=== PATIENT | female | born 1940 | race Hispanic/Latino ===

== ENCOUNTER 2020-06-30 07:17 | Observation (INO) | payer MEDICARE ==
[2020-06-26 09:24] LABS: BASOPHILS # (AUTO) 0.1 (0.0-0.1); BASOPHILS % 0.8 % (0.0-1.0); EOSINOPHILS # (AUTO) 0.3 (0.0-0.4); EOSINOPHILS % 4.2 % (0.0-6.0); HEMATOCRIT 35.4 % (34.2-44.1); LYMPHOCYTES # (AUTO) 1.2 (1.0-3.2); LYMPHOCYTES % 20.3 % (18.0-39.1); MEAN CORPUSCULAR HEMOGLOBIN 27.7 pg (28-32); MEAN CORPUSCULAR HGB CONC 31.1 g/dL (31-35); MEAN CORPUSCULAR VOLUME 89.2 fL (81-99); MONOCYTES # (AUTO) 0.5 (0.2-0.8); MONOCYTES % 7.4 % (4.4-11.3); NEUTROPHILS # (AUTO) 4.1 (2.1-6.9); PLATELET COUNT 252 x10e3/uL (140-360); RED BLOOD COUNT 3.97 x10e6/uL (3.6-5.1); RED CELL DISTRIBUTION WIDTH 12.7 % (11.7-14.4)
[2020-06-26 09:35] LABS: ANION GAP 14.4 mmol/L (8-16); BLOOD UREA NITROGEN 19 mg/dL (7-26); BUN/CREATININE RATIO 24 (6-25); CALCIUM 9.4 mg/dL (8.4-10.2); CARBON DIOXIDE 30 mmol/L (22-29); CHLORIDE 101 mmol/L (98-107); EST GLOMERULAR FILTRATION RATE > 60 ML/MIN (60-); GLUCOSE 102 mg/dL (74-118); POTASSIUM 4.4 mmol/L (3.5-5.1); SODIUM 141 mmol/L (136-145)
[~2020-06-30] VITALS: Ht 165.1 cm; Wt 89.8 kg
[~2020-06-30 07:17] MED LIST: ACETAMINOPHEN500 MG PO; ALENDRONATE SOD70 MG PO; AMLODIPINE BESYL5 MG PO; FERROUS SULFAT325 MG PO; HYDROCHLOROTHIA25 MG PO; NAPROXEN250 MG PO
[2020-06-30] MEDS ORDERED: ROPIVACAINE 246.25 MG, EPINEPHRINE HCL 1:1000 1ML 0.5 MG, CLONIDINE HCL 0.08 MG, KETORO... INJ ONE ×5 (08:00)
[2020-06-30] MEDS ORDERED: DEXAMETHASONE SOD PHOS 10 MG/1 ML VIAL ONE (08:11)
[2020-06-30] MEDS ORDERED: GABAPENTIN 300 MG CAP ONE (08:11)
[2020-06-30] MEDS ORDERED: CEFAZOLIN SOD 1 GM/NS 50ML 100 ML IV ONE (08:11)
[2020-06-30] MEDS ORDERED: CELECOXIB 200 MG CAP ONE (08:11)
[2020-06-30] MEDS ORDERED: VANCOMYCIN HCL 1,000 MG ONE (08:37)
[2020-06-30] MEDS ORDERED: TRANEXAMIC ACID 1,000 MG/10 ML ML ONE (08:37)
[2020-06-30] MEDS ORDERED: SODIUM CHLORIDE 0.9% 500ML 500 ML ONE (08:37)
[2020-06-30] MEDS ORDERED: DOCUSATE SODIUM 100 MG CAP PO PRN (09:45)
[2020-06-30] MEDS ORDERED: ONDANSETRON HCL INJ 2MG/ML 2ML 2 MG/ML VIAL IV PRN (09:45)
[2020-06-30] MEDS ORDERED: HYDROCODONE/APAP 5MG-325MG TAB PO PRN (09:45)
[2020-06-30] MEDS ORDERED: KETOROLAC TROMETHAMINE 30 MG/ML VIAL IV PRN (09:45)
[2020-06-30] MEDS ORDERED: DIPHENHYDRAMINE HCL INJ 50 MG/ML VIAL IV PRN (09:45)
[2020-06-30] MEDS ORDERED: ACETAMINOPHEN 650 MG SUPP PR PRN (09:45)
[2020-06-30 11:11] VITALS: BP 158/76
[2020-06-30 11:12] VITALS: BP 158/76
[2020-06-30 11:17] VITALS: BP 158/76
[2020-06-30] MEDS: SODIUM CHLORIDE 0.9% 1000ML 1,000 ML IV SCH ×2 (12:00→22:19)
[2020-06-30] MEDS ORDERED: ACETAMINOPHEN 1000 MG/100 ML IV PRN (12:00)
[2020-06-30] MEDS ORDERED: PROPOFOL IV EMULSION 10 MG/ML 20 ML VIAL ONE (12:27)
[2020-06-30] MEDS ORDERED: SEVOFLURANE INHAL SOLN 250 ML PEN BTL ONE (12:27)
[2020-06-30] MEDS ORDERED: ONDANSETRON HCL INJ 2MG/ML 2ML 2 MG/ML VIAL ONE (12:27)
[2020-06-30] MEDS ORDERED: ROPIVACAINE 0.5% 5 MG/ML 30 ML SDV ONE (12:56)
[2020-06-30] MEDS ORDERED: LIDOCAINE 2%/ EPINEPHRINE 20ML MDV ONE (12:56)
[2020-06-30] MEDS ORDERED: MORPHINE SULFATE INJ 10 MG/ML ONE (12:59)
[2020-06-30] MEDS ORDERED: FENTANYL CITRATE/PF 100MCG/2 ML INJ ONE (12:59)
[2020-06-30] MEDS ORDERED: MIDAZOLAM HCL 2 MG/2 ML VIAL ONE (12:59)
[2020-06-30 15:46] VITALS: BP 123/64
[2020-06-30] MEDS ORDERED: DEXTROSE 50% SYRINGE 50 ML IV PRN (16:45)
[2020-06-30] MEDS: ASPIRIN 325 MG TAB PO SCH (17:23)
[2020-06-30] MEDS: CEFAZOLIN SOD 1 GM/NS 50ML 50 ML IV SCH (17:23)
[2020-06-30] MEDS: CELECOXIB 200 MG CAP PO SCH (17:23)
[2020-06-30] MEDS: HYDROCODONE/APAP 7.5MG-325MG 1 EA TAB PO PRN (17:46)
[2020-06-30 20:00] VITALS: BP 141/87
[2020-06-30 21:00] VITALS: BP 141/87
[2020-06-30] MEDS ORDERED: ZOLPIDEM TARTRATE 5 MG TAB PO PRN (21:00)
[2020-06-30] MEDS: INSULIN LISPRO 100 UNIT/1 ML 3ML VIAL SQ SCH (21:50)
[2020-07-01] VITALS: BP 150/85
[2020-07-01] MEDS: CEFAZOLIN SOD 1 GM/NS 50ML 50 ML IV SCH ×2 (01:40→07:59)
[2020-07-01 04:00] VITALS: BP 149/83
[2020-07-01 04:52] LABS: HEMATOCRIT 32.2 % (34.2-44.1); HEMOGLOBIN 10.4 g/dL (12.0-16.0)
[2020-07-01] MEDS: SODIUM CHLORIDE 0.9% 1000ML 1,000 ML IV SCH (05:45)
[2020-07-01] MEDS: INSULIN LISPRO 100 UNIT/1 ML 3ML VIAL SQ SCH ×2 (07:30→11:30)
[2020-07-01 07:51] VITALS: BP 150/76
[2020-07-01 07:54] VITALS: BP 150/76
[2020-07-01] MEDS: CELECOXIB 200 MG CAP PO SCH (07:59)
[2020-07-01] MEDS: ASPIRIN 325 MG TAB PO SCH (07:59)
[2020-07-01] MEDS ORDERED: FERROUS SULFATE 325 MG TAB PO SCH (09:00)
[2020-07-01] MEDS ORDERED: HYDROCHLOROTHIAZIDE 25 MG TAB PO SCH (09:00)
[2020-07-01] MEDS ORDERED: AMLODIPINE BESYLATE 5 MG TAB PO SCH (09:00)
[2020-07-01] MEDS: HYDROCODONE/APAP 7.5MG-325MG 1 EA TAB PO PRN (10:53)
[2020-07-01 12:07] VITALS: BP 146/74
== END 2020-07-01 13:34 | disposition home or self-care (01) ==
LOC: OR 07:17 → PACU V 09:41 → MED/SURG 11:01
PROVIDERS: ADMIT Specialist; ATTEND Specialist
DX: M17.11 Unilateral primary osteoarthritis, right knee (principal); K21.9 Gastro-esophageal reflux disease without esophagitis; D64.9 Anemia, unspecified; E11.9 Type 2 diabetes mellitus without complications; I10 Essential (primary) hypertension; Z01.810 Encounter for preprocedural cardiovascular examination; Z01.812 Encounter for preprocedural laboratory examination; Z01.818 Encounter for other preprocedural examination; Z20.822 Contact with and (suspected) exposure to COVID-19; Z88.0 Allergy status to penicillin
CPT/HCPCS: 27447; 36415 ×3; 71046; 73560; 80048; 82948 ×2; 85014; 85018; 85025; 86850; 86900; 86920; 93005; 97110; 97116; 97139; 97162; 97530 ×2; C1713 ×3; C1776 ×2; G0378 ×2; J0171; J0690 ×2; J1100; J1885; J2001; J2250; J2270; J2405 ×2; J2704; J2795; J3010; J3370; J7030; J7040; U0002